=== PATIENT | male | born 1940 | race Caucasian/White ===

== ENCOUNTER 2024-05-30 15:10 | Outpatient (AMB) | payer MEDICARE, BC, SELFPAY ==
--- NOTE | 2024-05-30 15:35 | ACNOTE_ITS ---
Allergies/Meds Allergies & Medications Allergies No Known Allergies Allergy (Verified 10/01/20 12:06) MA Intake Visit Data Collection New Patient or Established: Established Patient (seen at [facility] within 3 years) Seen by Clinical Staff ONLY (RN/MA): No Pain Present Currently: No Pain scale:: 0 Pain Scale Used: Mcpherson-Maria/Numerical Mechanical Meter Tester Required: No PCP or OBGYN visit in last 3 months: No Hx Now: No Do You Feel Safe at Home: Yes Authorities Contacted: N/A Smoking Status Smoking Status: Former smoker Immunization / Flu Flu Vaccine in the Last 12 Months: No Flu Vaccine Exclusion Criteria: No Exclusion Criteria Past Medical History Past Medical History NEUROLOGIC: Negative Neurological Disorders, Seizures or Head Trauma CARDIAC: Positive Cardiac Disorders, Congestive Heart Failure, Edema and Hypertension RESPIRATORY: Positive Sleep Apnea; Negative Chronic Obstructive Pulmonary Disease (COPD) GASTROINTESTINAL: Positive Gastrointestinal Disorders, Gastrointestinal Bleed, Ulcer and Hemorrhoids GENITOURINARY: Negative Renal Disease MUSCULOSKELETAL: Positive Gout ENT: Negative Head Trauma ENDOCRINE: Positive Endocrine Disorders and Hypothyroidism; Negative Diabetes Mellitus Type 1 or Diabetes Mellitus Type 2 HEMATOLOGIC: Positive Anemia; Negative Blood Disorders PSYCHO/SOCIAL: Positive Anxiety OTHER HISTORY: Positive Blood Transfusions and Anesthesia Reactions (DIFFICULTY WAKING UP); Negative Autoimmune Disease, Falls, Blood Transfusion Reaction or Cancer Surgical History SURGICAL: Positive Cardiac Surgery, Angiogram and Tonsillectomy Social History SMOKING STATUS: Smoking status: Former smoker ALCOHOL: Alcohol Intake: Former HOUSING: Housing: House Patient [facility] [employer] [facility] Social History Living Situation History Housing: House Tobacco History Smoking Status: Former smoker Alcohol History Alcohol Intake: Former Domestic Abuse History Do You Feel Safe at Home: Yes Review of Systems Report any current symptoms Only answer those that you have currently: Past Medical History Past Medical History Have you ever been diagnosed with any of the following: Neurological Problems Seizures: No Head Trauma: No Cardiology Problems Congestive Heart Failure: Yes Edema: Yes Hypertension: Yes Respiratory Problems Chronic Obstructive Pulmonary Disease (COPD): No Sleep Apnea: Yes Stomache/Intestinal Problems Gastrointestinal Bleed: Yes Ulcer: Yes Hemorrhoids: Yes Genital/Urinary Problems Renal Disease: No Musculoskeletal Problems Gout: Yes Endocrine Problems Diabetes Mellitus Type 1: No Diabetes Mellitus Type 2: No Hypothyroidism: Yes Blood Problems Anemia: Yes Psychologic Problems Anxiety: Yes Other Problems Autoimmune Disease: No Falls: No Blood Transfusions: Yes Blood Transfusion Reaction: No Anesthesia Reactions: Yes (DIFFICULTY WAKING UP) Cancer: No History of Present Illness HPI Narrative 83 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 Presented to clinic due to bradycardia. He stated that he checked his HR and it was in thte 30s-40s. 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 Was recommende d to come tot the [facility] for further evaluation. Patient recently had a pacemaker around march 2024. patient does feel lightheaded Patient was taken to a room and vitals were taken. Review of Systems Review of Systems Systems Reviewed: All systems reviewed, normal except as documented Objective/Exam Narrative Physical exam: Constitutional: AOx3, able to speak full sentences HEENT: NC/AT, PERRLA, oral mucosa moist, neck supple CVS: bradycardic, S1-S2 present, no murmurs RESP: CTAB GI: non distended, non tender to palpation, NBS MSK: full ROM, no peripheral edema, peripheral pulses present Skin: warm and dry, no rashes Neuro: early breastfeeding care specialist II-XII grossly intact. Sensation grossly intact. Assessment & Plan Diagnosis / Problem List (1) Bradycardia: Status: Acute Assessment & Plan: HR was would fluctuate between 40s but then would go up to the 90s and then drop again as low as 32 bmp. Plan: Due to symptomatic bradycardia it was recommended and advice to call 911 and take the patient to the nearest ER however patient wanted his son to take him to [facility]. Son agreed. A letter was given to give to the ED. Advanced Care Planning Advance care planning discussed with:: patient and child Physician Billing Established Patient Established Patient: E/M Level 3-CPT 43565 Office Procedures [facility] Level of Care Nursing/Assessment Patient Status: Established Patient Nursing Assessment/Reassessment: Medication Reconciliation and Update PMH in EMR Coordination of Care: Complex Care and Chronic Disease 1-5, Consent,records obtained, informed consent, Education Simp Pt/Fam and Staff clarify orders Established Patient Charge Established Patient Point Assignment: 70 Established Patient Point Charge: EP Level 2 (40-75)
== END 2024-05-30 15:35 | disposition home or self-care (01) ==
LOC: HODAHC 15:10
PROVIDERS: Supervising Provider Internal Medicine; Visit Provider Student in an Organized Health Care Education/Training Program
DX: R00.1 Bradycardia, unspecified (principal); Z95.0 Presence of cardiac pacemaker
CPT/HCPCS: 99212; G0463

== ENCOUNTER → 2024-06-10 | Outpatient (CLI) | payer MEDICARE, BC, SELFPAY ==
[2024-06-10 12:41] LABS: Collection Type, Urine Clean Catch; Squamous Epithelial Cell,Urine 0 /hpf (0-5)
[2024-06-10 13:38] LABS: Bacteria,Urine 2+; Bilirubin,Urine Negative (Negative); Blood,Urine 1+ (Negative); Color,Urine Yellow (Lt Yel-Yel); Glucose, Urine Trace (Negative); Ketones,Urine Negative (Negative); Leukocyte Esterase,Urine Positive (Negative); Nitrite,Urine Negative (Negative); Protein,Urine 2+ (Neg - Trace); RBC,Urine 11 /hpf (0-3); Specific Gravity,Urine 1.013 (1.001-1.035); Urobilinogen,Urine Negative mg/dL (0.0-1.0); WBC,Urine 204 /hpf (0-5)
[2024-06-10 13:43] LABS: Clarity,Urine Hazy (Clear/Hazy); Culture Indicated,Urine Yes
== END | disposition home or self-care (01) ==
LOC: SLDO 12:31
PROVIDERS: Referring Provider Family Medicine; Visit Provider Family Medicine
DX: N39.0 Urinary tract infection, site not specified (principal)
CPT/HCPCS: 81001; 87077; 87086; 87186

== ENCOUNTER 2025-01-15 17:59 | Emergency (ER) | payer MEDICARE, BC, SELFPAY ==
[2025-01-15 17:59] VITALS: BMI 35.4
[2025-01-15 18:18] VITALS: BP 178/71; PULSE 81; RESP 18; TEMP 36.8; O2SAT 95
--- NOTE | 2025-01-15 18:32 | XR_ITS ---
Examination: Left elbow 3 views Technique: Elbow AP, oblique, lateral 3 views Exam date and time: January 15, 2025 1711 hours INDICATIONS: Worsening elbow pain and swelling after fistula access for dialysis FINDINGS: Extensive edema surrounding the elbow Surgical clips anterior elbow No fracture No cortical bone destruction IMPRESSION: Prominent edema surrounding the elbow, consider arterial Doppler of the right upper extremity follow-up
--- NOTE | 2025-01-15 18:32 | XR_ITS ---
Examination: Duplex scan of the upper extremity, unilateral left Date and time of exam: January 15, 2025, 1845 hours INDICATIONS: Left arm swelling and pain beginning 2 days ago Technique: Duplex scan of the extremity veins using B-mode/grayscale imaging and Doppler spectral analysis and color flow Attention is directed to internal echogenicity, compression and augmentation involving these veins, color flow assessment, spectral analysis Findings: Major deep venous structures in the extremity demonstrate normal course and caliber. There is no evidence of deep vein thrombosis. Normal color flow and spectral analysis Impression: Negative for DVT..
--- NOTE | 2025-01-15 18:33 | PD.EDRME ---
Rapid Medical Screening Exam RME Arrival date/time: 01/15/25 17:59 84M with history of ESR, HTN, and anxiety presents to ED with 2 days of worsening LUE pain and swelling after fistula was accessed recently for dialysis. Patient denies fall/trauma. Chief Complaint: Extremity Injury, Upper Vital signs: Vital Signs Temperature 98.2 F 01/15/25 18:18 Pulse Rate 81 01/15/25 18:18 Respiratory Rate 18 01/15/25 18:18 Blood Pressure 178/71 H 01/15/25 18:18 Pulse Oximetry (%) 95 01/15/25 18:18 Oxygen Delivery Method Room Air 01/15/25 18:18 Exam: LUE redness, bruising, swelling, and tenderness Clinical Impression: DVT vs cellulitis vs compartment syndrome vs fistula out of place
--- NOTE | 2025-01-15 20:15 | PD.EDADULT ---
ED General RME/HPI General Chief complaint: Extremity Injury, Upper Stated complaint: left arm swelling Time Seen by Provider: 01/15/25 19:32 Arrival date/time: 01/15/25 17:59 CC: Mild tenderness swelling and redness to the inner upper arm of the left arm HPI onset in the last 24 hours. Patient has a new dialysis shunt that was placed there first time dialysis from that site 2 days ago and since then he has experienced this in the last 24 hours denies fever chills shortness of breath or difficulty breathing. No other complaints. RME / HPI RME / HPI narrative: 01/15/25 17:59 84M with history of ESR, HTN, and anxiety presents to ED with 2 days of worsening LUE pain and swelling after fistula was accessed recently for dialysis. Patient denies fall/trauma. Exam: LUE redness, bruising, swelling, and tenderness Impression: DVT vs cellulitis vs compartment syndrome vs fistula out of place Related Data Home Medications ?Medication ?Instructions ?Recorded ?Confirmed alprazolam 0.5 mg tablet 0.5 mg PO QID 07/21/18 10/01/20 aspirin 81 mg tablet,delayed 81 mg PO QDAY 07/21/18 10/01/20 release (Aspir-) doxazosin 4 mg tablet 4 mg PO QDAY 07/21/18 10/01/20 allopurinol 100 mg tablet 100 mg PO DAILY 10/01/20 10/01/20 bumetanide 2 mg tablet 2 mg PO DAILY 10/01/20 10/01/20 carvedilol 12.5 mg tablet 12.5 mg PO DAILY 10/01/20 10/01/20 levothyroxine 25 mcg tablet 25 mcg PO DAILY 10/01/20 10/01/20 olmesartan 40 mg tablet 40 mg PO DAILY 10/01/20 10/01/20 vitamin B comp no.3-folic acid 1 1 tab PO DAILY 10/01/20 10/01/20 mg-vit C 60 mg-biotin 300 mcg tablet ([facility]) Allergies Allergy/AdvReac Type Severity Reaction Status Date / Time No Known Allergies Allergy Verified 01/15/25 18:02 Review of Systems Review of Systems Narrative Review of Systems: GEN: No fever, no chills, no weight loss EYES: No discharge, no visual changes, no pain HEENT: No ear pain, no congestion, no sore throat PULM: No shortness of breath, no cough, no congestion CV: No chest pain, no dyspnea on exertion, no palpitations GI: No nausea, no vomiting, no diarrhea, no pain, no constipation : No frequency, no urgency, no dysuria MUSC/SKEL: No joint pain, no back pain SKIN: Mild redness mild tenderness to the left inner upper arm. No rash PSYCH: No hallucinations, no depression HEME/LYMPH: No easy bleeding or bruising tendencies NEURO: No weakness, no headache ED Exam Narrative Physical exam: [General: Obese not in any acute distress Head normocephalic HEENT: Within acceptable limits Neck is supple nontender Chest equal chest rise nontender to palpation Respiratory: Clear to auscultation no wheezes crackles or rubs CV: Rate rhythm is regular no murmurs rubs or clicks Abdomen is distended secondary to body habitus soft nontender no masses positive bowel sounds all 4 quadrants Back: No CVA tenderness no spinous process tenderness from cervical spine thoracic and lumbar spine Skin: Subtle erythema and edema to the left inner upper arm just medial to the new dialysis shunt. Surgical site is clean dry and intact closed no dehiscence no pinholes no bleeding exudate or oozing of serous fluid. No streaking into the axilla. Mild tenderness to palpation to the medial aspect area. Otherwise skin is intact no petechiae rash induration ulceration or crepitus Extremities: Moving all extremity against resistance cap refill less than 2 seconds neurosensory intact Neuro: Awake alert oriented x3 Glascow coma 15 no focal deficits] Course Course Course Narrative: Patient's case clinical presentation and imaging discussed with Dr. Trejo who request the patient to get vancomycin and cefepime and be discharged without antibiotics for follow-up assessment at dialysis tomorrow. Quality Measures none Orders Category Date Time Status Saline [Insert IV] NOW Care 01/15/25 20:10 Active US venous doppler UE LT Stat Exams 01/15/25 18:32 Completed XR elbow comp LT min 3V Stat Exams 01/15/25 18:32 Completed Blood Culture (Lab) Stat Lab 01/15/25 20:19 Received CBC Stat Lab 01/15/25 20:32 Completed CMP [Comprehensive Metabolic Panel] Stat Lab 01/15/25 20:32 Completed Cefepime Inj [Maxipime Inj] 1 gm Med 01/15/25 20:11 Discontinued SODIUM CHLORIDE 0.9% (Popper) [Ns 0.9% (P)] 50 ml IV X1 Vancomycin/Ns 1 gm Ivpb 200 ml Med 01/15/25 20:11 Discontinued IV X1 Vital Signs Vital signs: Vital Signs Temperature 98.2 F 01/15/25 18:18 Pulse Rate 81 01/15/25 18:18 Respiratory Rate 18 01/15/25 18:18 Blood Pressure 178/71 H 01/15/25 18:18 Pulse Oximetry (%) 95 01/15/25 18:18 Oxygen Delivery Method Room Air 01/15/25 18:18 Discharge Plan Plan Patient Disposition: HOME (Self Care) Patient condition on transfer: Stable Prescriptions/Referrals Prescriptions/Med Rec: No Action aspirin [Aspir-81] 81 mg Tablet,Delayed Release (Dr/Ec) 81 mg PO QDAY alprazolam 0.5 mg Tablet 0.5 mg PO QID doxazosin 4 mg Tablet 4 mg PO QDAY carvedilol 12.5 mg tablet 12.5 mg PO DAILY Patient Comments: TAKE 1 TABLET BY MOUTH TWICE A DAY FOR BLOOD PRESSURE bumetanide 2 mg tablet 2 mg PO DAILY Patient Comments: TAKE 1 TABLET BY MOUTH EVERY DAY DIURETIC FOR 90 DAYS allopurinol 100 mg tablet 100 mg PO DAILY Patient Comments: TAKE 1 TABLET BY MOUTH EVERY DAY levothyroxine 25 mcg tablet 25 mcg PO DAILY olmesartan 40 mg tablet 40 mg PO DAILY Patient Comments: TAKE 1 TABLET BY MOUTH EVERY DAY [facility] 1-60-300 mg-mg-mcg tablet 1 tab PO DAILY Patient Comments: TAKE 1 TABLET BY MOUTH EVERY DAY Referrals: Yash Tobias MD [Primary Care Provider, Family Practice] - In 1 week Problem List Clinical Impression: Cellulitis of arm, left Patient/Caregiver Discharge Instructions Other Activity Instructions:: Let Dr Trejo at dialysis to assess your arm. If you spike a fever or have any other worsening of symptoms return to the emergency room meetly for further evaluation. Education Materials: ED Cellulitis Print Language: German Stand Alone Forms: Arabella Award Info., Patient Portal Info Letter PA/THERAPEUTIC CONSULTANT Supervising Physician PA/THERAPEUTIC CONSULTANT Supervising Physician: Ganesh Liao ENP MDM Labs Labs: interpreted by me Lab(s) Interpretation(s): CBC shows no leukocytosis and mild but stable anemia with hemoglobin of 12 hematocrit of 39. CMP shows BUN of 26 creatinine 5.1 there are no significant electrolyte imbalances. This is high for the patient he is a dialysis patient will be dialyzed tomorrow. Imaging Imaging interpretation: none Medication Administration(s) Medication Administration History Discontinued Medications Cefepime HCl 1 gm/ Sodium (Chloride) 50 mls @ 100 mls/hr IV X1 ONE Stop: 01/15/25 20:40 Last Infusion: 01/15/25 22:19 Dose: Infused Documented By: Admin: 01/15/25 20:30 Dose: 100 mls/hr Documented By: EB Vancomycin/Sodium Chloride (Vancomycin/Ns 1 Gm Ivpb) 200 mls @ 120 mls/hr IV X1 ONE Stop: 01/15/25 21:50 Last Infusion: 01/15/25 22:20 Dose: Infused Documented By: Infusion: 01/15/25 20:42 Dose: 120 mls/hr Documented By: Admin: 01/15/25 20:40 Dose: 120 mls/hr Documented By: EB Diagnosis Differential Diagnosis ED Complaint MDM: Electrolyte imbalance surgical site infection surgical site abscess.
[2025-01-15] MEDS: CEFEPIME INJ 1 GM in SODIUM CHLORIDE 0.9% (Popper) 50 ML IV (20:30)
[2025-01-15] MEDS: VANCOMYCIN/NS 1 GM IVPB 200 ML IV (20:40)
[2025-01-15 20:58] LABS: Basophils # (Auto) 0.0 Thou/mm3 (0.0-0.2); Basophils % (Auto) 0 % (0-2.5); Eosinophils # (Auto) 0.1 Thou/mm3 (0.0-0.5); Eosinophils % (Auto) 1 % (0-10); Hematocrit 39.0 % (41.0-53.0); Hemoglobin 12.1 g/dL (13.5-16.0); Immature Granulocytes Auto 0.04 Thou/mm3 (0.00-0.00); Lymphocytes # (Auto) 1.8 Thou/mm3 (1.0-4.8); Lymphocytes % (Auto) 26 % (10-50); Mean Corpuscular HGB Conc 31.0 g/dl (31.0-37.0); Mean Corpuscular Hemoglobin 31.3 pg (25.0-35.0); Mean Corpuscular Volume 101 fL (80-100); Monocytes # (Auto) 0.5 Thou/mm3 (0.0-0.8); Monocytes % (Auto) 7 % (0-12); Neutrophils # (Auto) 4.6 Thou/mm3 (1.8-7.7); Neutrophils % (Auto) 65 % (37-80); Nucleated Red Blood Cell # 0.00 Thou/mm3 (0.00-0.00); Nucleated Red Blood Cell % 0 /100 WBC (0); Platelet Count 186 Thou/mm3 (140-440); RDW Standard Deviation 51.1 fL (35.1-43.9); Red Blood Count 3.86 Miln/mm3 (4.50-5.90); White Blood Count 7.0 Thou/mm3 (3.8-10.6)
[2025-01-15 21:11] LABS: Alanine Aminotransferase 9 U/L (10-49); Albumin, Serum 4.4 gm/dL (3.4-4.8); Albumin/Globulin Ratio 1.4 (1.2-2.2); Alkaline Phosphatase 80 U/L (46-116); Anion Gap 11 (7-16); Aspartate Amino Transferase 13 U/L (0-34); BUN/Creatinine Ratio 5 Ratio (12-20); Bilirubin,Total 0.4 mg/dL (0.3-1.2); Blood Urea Nitrogen 26 mg/dL (9-23); Calcium 9.5 mg/dL (8.3-10.6); Calcium (Corrected) 9.5 mg/dL (8.5-10.1); Carbon Dioxide 28.7 mMol/L (20.0-31.0); Chloride 103 mMol/L (98-107); Creatinine (Component) 5.1 mg/dL (0.6-1.3); Estimated Creatinine Clearance 13.3 mL/min (>60); Globulin 3.1 gm/dL (2.3-3.5); Glucose 90 mg/dL (74-106); Osmolality,Calculated 289 (275-295); Potassium 3.8 mMol/L (3.4-5.1); Sodium 143 mMol/L (136-145); Total Protein 7.5 gm/dL (5.7-8.2); eGFR 11 See Note
[2025-01-15 22:56] VITALS: BP 134/78; PULSE 64; RESP 20; TEMP 36.6; O2SAT 99
== END 2025-01-15 22:30 | disposition home or self-care (01) ==
PROVIDERS: Registered Nurse General Practice; Emergency Provider Emergency Medicine; PCP Family Medicine
DX: L03.114 Cellulitis of left upper limb (principal); Z99.2 Dependence on renal dialysis
CPT/HCPCS: 36415; 73080; 80053; 85025; 87040; 93971; 96365; 99283; J0692; J3373; J7050